=== PATIENT | male | born 1945 | race Caucasian/White ===

== ENCOUNTER 2017-02-08 12:29 | Inpatient (IN) | payer OTHER ==
[~2017-02-08] VITALS: Ht 180.3 cm; Wt 102.5 kg
[2017-02-08 13:29] LABS: MCHC 32.3 G/DL (30.0-36.0); MCV 86.5 FL (86-99); MEAN PLAT.VOLUME 10.4 uM^3 (9.0-12.4); PLATELET COUNT 216 K/uL (156-360); RBC DIS.WIDTH-CV 13.1 % (11.8-14.6); RBC DIS.WIDTH-SD 41.2 % (39-53); RED BLOOD COUNT 4.97 M/uL (4.00-5.50); WHITE BLOOD COUNT 8.1 K/uL (4.1-10.2)
[2017-02-08 13:37] LABS: CHLORIDE 109 mEq/L (99-109); POTASSIUM 4.6 mEq/L (3.7-5.4); SODIUM 137 mEq/L (136-147)
[2017-02-08 13:39] LABS: GLUCOSE 110 mg/dL (70-99)
[2017-02-08 13:40] LABS: ANION GAP 11 MEQ/L (2-14)
[2017-02-08 13:43] LABS: GFR ESTIMATE (CALCULATED) 32 mL/min/
[2017-02-08 13:44] LABS: UREA NITROGEN (BUN) 25 mg/dL (9-23)
[2017-02-08 15:46] LABS: TROP-I INTERPRETATION NEGATIVE; TROPONIN-I 0.02 ng/mL (0.0-0.30)
[2017-02-08] MEDS ORDERED: ADVIL,NUPRIN,M200 MG PO (16:01)
[2017-02-08 19:49] LABS: CARBON DIOXIDE (BICARBONATE) 20.4 MEQ/L (20-31)
[2017-02-08 19:58] LABS: CHLORIDE 112 mEq/L (99-109); MAGNESIUM 1.5 mg/dL (1.3-2.7); POTASSIUM 4.4 mEq/L (3.7-5.4); SODIUM 136 mEq/L (136-147)
[2017-02-08 20:00] LABS: GLUCOSE 102 mg/dL (70-99)
[2017-02-08 20:01] LABS: ANION GAP 7 MEQ/L (2-14)
[2017-02-08 20:02] LABS: TOTAL BILIRUBIN 0.3 mg/dL (0.0-1.0)
[2017-02-08 20:04] LABS: ALKALINE PHOSPHATASE 46 IU/L (3-129); GFR ESTIMATE (CALCULATED) 35 mL/min/
[2017-02-08 20:05] LABS: UREA NITROGEN (BUN) 23 mg/dL (9-23)
[2017-02-08 20:52] VITALS: BP 220/90
[2017-02-09] VITALS (7 sets, daily range): BP systolic 128–174; BP diastolic 73–101
[2017-02-09 07:32] LABS: ALKALINE PHOSPHATASE 43 IU/L (3-129); ANION GAP 8 MEQ/L (2-14); CHLORIDE 106 MEQ/L (99-109); GFR ESTIMATE (CALCULATED) 35 mL/min/; POTASSIUM 4.7 MEQ/L (3.7-5.4); SAMPLE HEMOLYSIS CHECK 0; SAMPLE ICTERIC CHECK 0; SAMPLE LIPEMIA CHECK 0; SODIUM 133 MEQ/L (136-147); TOTAL BILIRUBIN 0.4 MG/DL (0.0-1.0); UREA NITROGEN (BUN) 21 mg/dL (9-23)
[2017-02-09 07:35] LABS: GLUCOSE 154 mg/dL (70-99)
[2017-02-09 15:11] LABS: ADD MIUA? YES; BILIRUBIN NEGATIVE; BLOOD SMALL; COLOR YELLOW ((YELLOW)); GLUCOSE (STRIP) NEGATIVE; KETONES NEGATIVE; LEUKOCYTES NEGATIVE; NITRITE NEGATIVE; PROTEIN (STRIP) 30; SPECIFIC GRAVITY 1.014 (1.000-1.030); UROBILINOGEN 0.2 MG/DL (0.2-1.0)
[2017-02-09 15:20] LABS: BACTERIA NONE SEEN /HPF; EPITHELIAL CELLS NONE SEEN /HPF; MUCUS TRACE /LPF; UCUL ADDED? NO; WHITE BLOOD CELLS 0-5 /HPF (0-5)
[2017-02-10 06:11] LABS: EOSINOPHIL (%) 0.1 % (0-5); HEMATOCRIT 35.8 % (38.0-50.0); IMMATURE GRANULOCYTE (%) 0.4 % (0.0-0.7); INSTRUMENT ABS NEUTROPHIL CT 5.4 K/uL; LYMPHOCYTE COUNT 2.3 K/uL (1.0-2.8); MCH 28.7 PG (29.0-34.0); MCV 87.1 FL (86-99); MEAN PLAT.VOLUME 9.5 uM^3 (9.0-12.4); MONOCYTE (%) 8.2 % (3-12); MONOCYTE COUNT 0.7 K/uL (0-0.8); NEUTROPHIL (%) 63.4 % (45-76); NEUTROPHIL COUNT 5.4 K/uL (1.8-6.4); PLATELET COUNT 229 K/uL (156-360); RBC DIS.WIDTH-SD 40.7 % (39-53); RED BLOOD COUNT 4.11 M/uL (4.00-5.50); WHITE BLOOD COUNT 8.5 K/uL (4.1-10.2)
[2017-02-10 06:26] LABS: ANION GAP 7 MEQ/L (2-14); CHLORIDE 109 MEQ/L (99-109); GFR ESTIMATE (CALCULATED) 30 mL/min/; MAGNESIUM 2.2 mg/dl (1.3-2.7); POTASSIUM 4.6 MEQ/L (3.7-5.4); SAMPLE HEMOLYSIS CHECK 0; SAMPLE ICTERIC CHECK 0; SAMPLE LIPEMIA CHECK 0; SODIUM 137 MEQ/L (136-147); UREA NITROGEN (BUN) 31 mg/dL (9-23); URIC ACID 9.2 mg/dL (3.1-9.2)
[2017-02-10 06:31] LABS: GLUCOSE 115 mg/dL (70-99)
[2017-02-10 06:48] LABS: Estimated Average Glucose 123 mg/dL (70-123); HEMOGLOBIN A1c (GLYCOHEMOGLOB) 5.9 % HGB (Below 5.7)
[2017-02-10 08:07] VITALS: BP 141/90
[2017-02-10 23:05] VITALS: BP 144/78
[2017-02-11 08:21] VITALS: BP 147/89
[2017-02-11 08:57] LABS: MCHC 31.8 G/DL (30.0-36.0); MEAN PLAT.VOLUME 9.6 uM^3 (9.0-12.4); PLATELET COUNT 267 K/uL (156-360); RBC DIS.WIDTH-SD 41.8 % (39-53); RED BLOOD COUNT 4.32 M/uL (4.00-5.50)
[2017-02-11 09:24] LABS: ANION GAP 10 MEQ/L (2-14); CHLORIDE 108 MEQ/L (99-109); GFR ESTIMATE (CALCULATED) 29 mL/min/; GLUCOSE 92 mg/dL (70-99); POTASSIUM 4.7 MEQ/L (3.7-5.4); SAMPLE HEMOLYSIS CHECK 0; SAMPLE ICTERIC CHECK 0; SAMPLE LIPEMIA CHECK 0; SODIUM 138 MEQ/L (136-147); UREA NITROGEN (BUN) 39 mg/dL (9-23)
[2017-02-11] MEDS ORDERED: Procardia XL,Adalat PO (11:08)
[2017-02-11] MEDS ORDERED: DELTASONE20 M1 PO (11:08)
== END 2017-02-11 14:15 | disposition home or self-care (01) | DRG 683 ==
LOC: EME 12:29 → 5WEST 19:24 → EDOF 19:24 → 5WEST 20:33 → 5SOUTH 02-09 11:49
PROVIDERS: Hospitalist; Internal Medicine Nephrology; Physician Assistant; Physician Assistant Medical
DX: N17.9 Acute kidney failure, unspecified (principal); E87.2 Acidosis; N13.2 Hydronephrosis with renal and ureteral calculous obstruction; I16.0 Hypertensive urgency; I12.9 Hypertensive chronic kidney disease with stage 1 through stage 4 chronic kidney disease, or unspecified chronic kidney disease; N18.9 Chronic kidney disease, unspecified; E66.9 Obesity, unspecified; Z68.31 Body mass index [BMI] 31.0-31.9, adult; M06.9 Rheumatoid arthritis, unspecified; M79.89 Other specified soft tissue disorders
CPT/HCPCS: 71020; 73130; 74176; 74420; 76770; 80048; 80048 91; 80053; 81003; 82436; 82575; 82803; 83036; 83735; 83935; 84100; 84133; 84300; 84484; 84550; 85025; 85027; 85651; 86038; 86141; 86430; 89190; 93005; 99281; 99285; C1758; C1769; C1876; G0103; G0378; J0360; J0690; J1100; J1170; J1644; J1885; J2405; J2920; J3010; J3475; J7030; J7050

== ENCOUNTER 2017-03-25 13:32 | Inpatient (IN) | payer OTHER ==
[~2017-03-25] VITALS: Ht 180.3 cm; Wt 101.0 kg
[~2017-03-25 13:32] MED LIST: ADVIL,NUPRIN,M200 MG PO; DELTASONE20 M1 PO; Procardia XL,Adalat PO
[2017-03-25 15:57] LABS: ADD MIUA? YES; BILIRUBIN NEGATIVE; BLOOD MODERATE; COLOR YELLOW ((YELLOW)); GLUCOSE (STRIP) NEGATIVE; KETONES NEGATIVE; LEUKOCYTES LARGE; NITRITE NEGATIVE; PROTEIN (STRIP) 30; SPECIFIC GRAVITY 1.014 (1.000-1.030); UROBILINOGEN 0.2 MG/DL (0.2-1.0)
[2017-03-25 16:15] LABS: HEMATOCRIT 39.4 % (38.0-50.0); MCH 26.9 PG (29.0-34.0); MEAN PLAT.VOLUME 9.7 uM^3 (9.0-12.4); RBC DIS.WIDTH-CV 14.2 % (11.8-14.6); RBC DIS.WIDTH-SD 43.3 % (39-53); RED BLOOD COUNT 4.69 M/uL (4.00-5.50); WHITE BLOOD COUNT 10.3 K/uL (4.1-10.2)
[2017-03-25 16:15] LABS: EPITHELIAL CELLS 1+ /HPF; WHITE BLOOD CELLS TNTC /HPF (0-5)
[2017-03-25 16:16] LABS: BACTERIA 1+ /HPF; CASTS PRESENT /LPF; CRYSTALS NONE SEEN; FINE GRANULAR CASTS 0-5 /LPF; HYALINE CASTS 0-5 /LPF; MUCUS RARE /LPF
[2017-03-25 16:17] LABS: PLATELET COUNT 533 K/uL (156-360)
[2017-03-25 16:24] LABS: CHLORIDE 95 mEq/L (99-109); POTASSIUM 3.9 mEq/L (3.7-5.4); SODIUM 132 mEq/L (136-147)
[2017-03-25 16:27] LABS: GLUCOSE 144 mg/dL (70-99)
[2017-03-25 16:28] LABS: ANION GAP 18 MEQ/L (2-14)
[2017-03-25 16:29] LABS: TOTAL BILIRUBIN 0.6 mg/dL (0.0-1.0)
[2017-03-25 16:30] LABS: ALKALINE PHOSPHATASE 168 IU/L (3-129); GFR ESTIMATE (CALCULATED) 19 mL/min/
[2017-03-25 16:31] LABS: UREA NITROGEN (BUN) 89 mg/dL (9-23)
[2017-03-25 16:34] LABS: D-DIMER ELISA > 4.00 mg/L FEU (< 0.57)
[2017-03-25] MEDS ORDERED: PERCOCET 5/31 TABLET PO (19:37)
[2017-03-25] MEDS ORDERED: KEFLEX500 MG PO (19:43)
[2017-03-25] MEDS ORDERED: NIFEDIPINE ER60 MG PO (22:10)
[2017-03-25] MEDS ORDERED: HYDROCHLOROTH12.5 M3 PO (22:10)
[2017-03-26] VITALS (7 sets, daily range): BP systolic 111–163; BP diastolic 60–83
[2017-03-26 00:49] LABS: CREATINE KINASE 33 IU/L (1-294); TOTAL CK 33 IU/L (1-294)
[2017-03-26 00:56] LABS: CK-MB 0.7 ng/mL (0.0-4.9)
[2017-03-26 07:38] LABS: ANION GAP 14 MEQ/L (2-14); CHLORIDE 99 MEQ/L (99-109); GFR ESTIMATE (CALCULATED) 23 mL/min/; GLUCOSE 113 mg/dL (70-99); POTASSIUM 4.2 MEQ/L (3.7-5.4); SAMPLE HEMOLYSIS CHECK 0; SAMPLE ICTERIC CHECK 0; SAMPLE LIPEMIA CHECK 0; SODIUM 135 MEQ/L (136-147); UREA NITROGEN (BUN) 80 mg/dL (9-23)
[2017-03-26 08:45] LABS: URIC ACID 14.4 mg/dL (3.1-9.2)
[2017-03-27 04:08] VITALS: BP 133/81
[2017-03-27 07:43] VITALS: BP 155/84
[2017-03-27 08:21] LABS: C-REACTIVE PROTEIN 182.6 MG/L (0-10); SAMPLE HEMOLYSIS CHECK 0; SAMPLE ICTERIC CHECK 0; SAMPLE LIPEMIA CHECK 0
[2017-03-27 08:33] LABS: ANION GAP 15 MEQ/L (2-14); CHLORIDE 102 MEQ/L (99-109); GFR ESTIMATE (CALCULATED) 29 mL/min/; GLUCOSE 113 mg/dL (70-99); SODIUM 136 MEQ/L (136-147); UREA NITROGEN (BUN) 64 mg/dL (9-23)
[2017-03-27 08:57] LABS: EOSINOPHIL (%) 1.5 % (0-5); EOSINOPHIL COUNT 0.1 K/uL (0-0.3); IMMATURE GRANULOCYTE (%) 3.9 % (0.0-0.7); IMMATURE GRANULOCYTE COUNT 0.4 K/uL; INSTRUMENT ABS NEUTROPHIL CT 6.2 K/uL; LYMPHOCYTE COUNT 1.6 K/uL (1.0-2.8); MCH 27.6 PG (29.0-34.0); MCHC 31.9 G/DL (30.0-36.0); MCV 86.4 FL (86-99); MEAN PLAT.VOLUME 10.4 uM^3 (9.0-12.4); MONOCYTE (%) 10.2 % (3-12); NEUTROPHIL COUNT 6.2 K/uL (1.8-6.4); PLATELET COUNT 475 K/uL (156-360); RBC DIS.WIDTH-CV 14.2 % (11.8-14.6); RBC DIS.WIDTH-SD 45.2 % (39-53); WHITE BLOOD COUNT 9.3 K/uL (4.1-10.2)
[2017-03-27 09:03] LABS: RED BLOOD COUNT 3.59 M/uL (4.00-5.50)
[2017-03-27 11:25] VITALS: BP 163/86
[2017-03-27 15:24] VITALS: BP 155/85
[2017-03-27 19:24] VITALS: BP 141/84
[2017-03-28 00:47] VITALS: BP 169/94
[2017-03-28 04:44] VITALS: BP 168/77
[2017-03-28 04:55] VITALS: BP 134/82
[2017-03-28 06:38] LABS: EOSINOPHIL (%) 0 % (0-5); HEMATOCRIT 34.2 % (38.0-50.0); IMMATURE GRANULOCYTE (%) 3.5 % (0.0-0.7); IMMATURE GRANULOCYTE COUNT 0.3 K/uL; INSTRUMENT ABS NEUTROPHIL CT 5.8 K/uL; LYMPHOCYTE COUNT 0.9 K/uL (1.0-2.8); MCH 26.8 PG (29.0-34.0); MCHC 31.3 G/DL (30.0-36.0); MCV 85.7 FL (86-99); MEAN PLAT.VOLUME 9.8 uM^3 (9.0-12.4); MONOCYTE (%) 3.2 % (3-12); MONOCYTE COUNT 0.2 K/uL (0-0.8); NEUTROPHIL (%) 80.6 % (45-76); NEUTROPHIL COUNT 5.8 K/uL (1.8-6.4); PLATELET COUNT 510 K/uL (156-360); RBC DIS.WIDTH-CV 13.8 % (11.8-14.6); RBC DIS.WIDTH-SD 43.8 % (39-53); RED BLOOD COUNT 3.99 M/uL (4.00-5.50); WHITE BLOOD COUNT 7.2 K/uL (4.1-10.2)
[2017-03-28 07:05] LABS: ANION GAP 12 MEQ/L (2-14); C-REACTIVE PROTEIN 162.6 MG/L (0-10); CHLORIDE 104 MEQ/L (99-109); GFR ESTIMATE (CALCULATED) 30 mL/min/; GLUCOSE 136 mg/dL (70-99); SAMPLE HEMOLYSIS CHECK 0; SAMPLE ICTERIC CHECK 0; SAMPLE LIPEMIA CHECK 0; SODIUM 139 MEQ/L (136-147); UREA NITROGEN (BUN) 57 mg/dL (9-23)
[2017-03-28 07:06] LABS: POTASSIUM 4.9 MEQ/L (3.7-5.4)
[2017-03-28 07:46] VITALS: BP 154/88
[2017-03-28] MEDS ORDERED: NIFEDIPINE ER90 MG PO (12:12)
[2017-03-28] MEDS ORDERED: PREDNISONE10 MG PO (12:12)
[2017-03-28] MEDS ORDERED: AUGMENTIN875 MG PO (12:12)
== END 2017-03-28 15:17 | disposition home or self-care (01) | DRG 683 ==
LOC: EME 13:32 → 3EAST 23:13 → EDOF 23:13 → 3EAST 03-26 02:15
PROVIDERS: Hospitalist; Internal Medicine; Nurse Practitioner Family
DX: I12.9 Hypertensive chronic kidney disease with stage 1 through stage 4 chronic kidney disease, or unspecified chronic kidney disease (principal); N17.9 Acute kidney failure, unspecified; F12.90 Cannabis use, unspecified, uncomplicated; G89.29 Other chronic pain; J32.0 Chronic maxillary sinusitis; M17.0 Bilateral primary osteoarthritis of knee; N13.2 Hydronephrosis with renal and ureteral calculous obstruction; N39.0 Urinary tract infection, site not specified; Z82.49 Family history of ischemic heart disease and other diseases of the circulatory system; Z83.3 Family history of diabetes mellitus; Z87.442 Personal history of urinary calculi; R53.1 Weakness; R60.0 Localized edema; R63.0 Anorexia; E66.9 Obesity, unspecified; Z68.31 Body mass index [BMI] 31.0-31.9, adult; N18.4 Chronic kidney disease, stage 4 (severe)
CPT/HCPCS: 70450; 71010; 73564; 78582; 80048; 80053; 80069; 81003; 82550; 82553; 84550; 85025; 85027; 85379; 85651; 86140; 87086; 93970; 97530 GP; 99281; 99285; A9540; A9567; J0696; J1644; J2405; J3010; J7030; J7050; J7512

== ENCOUNTER → 2017-05-10 | Outpatient (CLI) | payer OTHER ==
[~2017-05-10] MED LIST changes: +AUGMENTIN875 MG PO; +HYDROCHLOROTH12.5 M3 PO; +KEFLEX500 MG PO; +NIFEDIPINE ER60 MG PO; +NIFEDIPINE ER90 MG PO; +PERCOCET 5/31 TABLET PO; +PREDNISONE10 MG PO
== END | disposition home or self-care (01) ==
LOC: NUC 11:00
DX: N13.30 Unspecified hydronephrosis (principal); N28.9 Disorder of kidney and ureter, unspecified
CPT/HCPCS: 78709; A9562